=== PATIENT | female | born 1985 | race Caucasian/White ===

== ENCOUNTER 2020-12-21 19:09 | Emergency (ER) | payer BC ==
[2020-12-21 19:20] VITALS: BMI 30.1
[2020-12-21] MEDS ORDERED: ELECTROLYTE-148 SOLN 1,000 ML IV SCH (20:55)
[2020-12-21 21:21] LABS: PH,URINE 6.5 (5.0-8.0); URINE APPEARANCE CLEAR; URINE BILIRUBIN NEGATIVE (NEGATIVE); URINE COLOR YELLOW; URINE GLUCOSE (UA) NEGATIVE (NEGATIVE); URINE KETONE NEGATIVE (NEGATIVE); URINE LEUK ESTERASE NEGATIVE (NEGATIVE); URINE NITRITE NEGATIVE (NEGATIVE); URINE PROTEIN NEGATIVE (NEGATIVE)
[2020-12-21 22:16] VITALS: BP 122/68; PULSE 82; TEMP 98.1
== END 2020-12-21 22:06 | disposition home or self-care (01) ==
LOC: JER 19:09
DX: R10.9 Unspecified abdominal pain (principal); Z3A.29 29 weeks gestation of pregnancy
CPT/HCPCS: 81003; 87086; 99284-25

== ENCOUNTER 2021-03-12 08:55 | Inpatient (IN) | payer BC ==
[~2021-03-12 08:55] MED LIST: CITRIC ACID/SODIUM CITRATE 30 ML UNIT-DOSE CUP PO ONE; ELECTROLYTE-148 SOLN 1,000 ML IV SCH
[2021-03-12] MEDS ORDERED: ELECTROLYTE-148 SOLN 1,000 ML IV SCH (09:25)
[2021-03-12 10:16] VITALS: BMI 33.1
[2021-03-12 10:55] LABS: BASO % 0.3 % (0-2.0); EOS % 0.3 % (0-4.5); HEMATOCRIT 28.9 % (32.4-45.2); HEMOGLOBIN 9.4 GM/dL (10.7-15.3); LYMPH % 9.7 % (8-40); MCH 26.2 pg (25.7-33.7); MCHC 32.7 g/dl (32.0-36.0); MEAN PLT VOLUME 9.8 fl (7.5-11.1); MONO % 6.2 % (3.8-10.2); NEUT % 83.5 % (42.8-82.8); PLATELET COUNT 183 10^3/uL (134-434); RBC 3.61 M/mm3 (3.60-5.2); RDW 15.6 % (11.6-15.6); WHITE BLOOD COUNT 10.2 K/mm3 (4.0-10.0)
[2021-03-12 11:00] LABS: INR 1.01 (0.83-1.09); PROTHROMBIN TIME (PATIENT) 12.2 SEC (9.7-13.0)
[2021-03-12 11:03] LABS: ACTIVATED PTT 22.4 SECONDS (25.2-36.5)
[2021-03-12 11:21] LABS: BLOOD UREA NITROGEN 6.6 mg/dL (7-18); CALCIUM 8.9 mg/dL (8.5-10.1)
[2021-03-12 11:25] LABS: CREATININE 0.8 mg/dL (0.55-1.3)
[2021-03-12 12:33] LABS: HIV INTERPRETATION NEGATIVE (NEGATIVE)
[2021-03-12] MEDS: ELECTROLYTE-148 SOLN 1,000 ML IV SCH (12:45)
[2021-03-12] MEDS ORDERED: CITRIC ACID/SODIUM CITRATE 30 ML UNIT-DOSE CUP PO ONE (13:13)
[2021-03-12] MEDS ORDERED: ELECTROLYTE-148 SOLN 500 ML IV ONE (13:13)
[2021-03-12] MEDS ORDERED: morphine SULFATE/PF 0.5 MG/ML (2cc Syringe - QUVA) ONE (19:02)
[2021-03-12] MEDS ORDERED: ceFAZolin SODIUM 1 GM VIAL ONE (19:07)
[2021-03-12] MEDS ORDERED: morphine SULFATE/PF 0.5 MG/ML (2cc Syringe - QUVA) EP ONE ×3 (19:17→23:30)
[2021-03-12] MEDS ORDERED: KETOROLAC TROMETHAMINE 30 MG/1 ML VIAL ONE (19:35)
[2021-03-12] MEDS ORDERED: OXYTOCIN 20 UNITS in 0.9% NS 20 UNIT/1,000 ML INFUS.BAG IV ONE (19:42)
[2021-03-12] MEDS ORDERED: IBUPROFEN 800 MG/8 ML IJ IVPB PRN ×2 (21:01→22:09)
[2021-03-12] MEDS ORDERED: METHYLERGONOVINE MALEATE 0.2 MG/1 ML AMP IM PRN (21:01)
[2021-03-12] MEDS ORDERED: oxyCODONE HCL 5 MG TABLET PO PRN (21:01)
[2021-03-12] MEDS ORDERED: SENNOSIDES/DOCUSATE COMBO (SENNA PLUS) TABLET (UD) PO PRN (21:01)
[2021-03-12] MEDS ORDERED: IBUPROFEN 600 MG TABLET (FP) PO PRN ×2 (21:01→22:10)
[2021-03-12] MEDS ORDERED: OXYTOCIN 20 UNITS in 0.9% NS 20 UNIT/1,000 ML INFUS.BAG IV SCH (21:15)
[2021-03-12] MEDS ORDERED: ONDANSETRON 4 MG/2 ML VIAL IVPUSH PRN (22:00)
[2021-03-12] MEDS ORDERED: ACETAMINOPHEN 1000 MG/100 ML VIAL (NON FORMULARY) IVPB ONE (22:01)
[2021-03-12] MEDS ORDERED: ACETAMINOPHEN 1000 MG/100 ML VIAL (NON FORMULARY) IVPB PRN (23:35)
[2021-03-13] MEDS: MORPHINE SULFATE 2 MG/ML VIAL IVPUSH PRN ×2 (00:19→08:19)
[2021-03-13 09:09] LABS: BASO % 0.2 % (0-2.0); EOS % 0.2 % (0-4.5); HEMATOCRIT 26.6 % (32.4-45.2); HEMOGLOBIN 8.8 GM/dL (10.7-15.3); LYMPH % 5.6 % (8-40); MCH 26.6 pg (25.7-33.7); MCHC 33.2 g/dl (32.0-36.0); MEAN CELL VOLUME 80.1 fl (80-96); MEAN PLT VOLUME 10.5 fl (7.5-11.1); MONO % 5.2 % (3.8-10.2); NEUT % 88.8 % (42.8-82.8); PLATELET COUNT 144 10^3/uL (134-434); RBC 3.32 M/mm3 (3.60-5.2); RDW 15.6 % (11.6-15.6); WHITE BLOOD COUNT 11.2 K/mm3 (4.0-10.0)
[2021-03-13] MEDS: oxyCODONE HCL 5 MG TABLET PO PRN ×2 (12:10→16:25)
[2021-03-13] MEDS: SIMETHICONE 80 MG TAB.CHEW (FP) PO PRN ×3 (12:10→21:55)
[2021-03-13] MEDS: ELECTROLYTE-148 SOLN 1,000 ML IV SCH (13:31)
[2021-03-13] MEDS ORDERED: ACETAMINOPHEN 325 MG TABLET (FP) PO PRN (18:20)
[2021-03-13] MEDS ORDERED: BISACODYL 10 MG SUPP.RECT RC PRN (21:01)
[2021-03-13] MEDS: ACETAMINOPHEN 325 MG TABLET (FP) PO PRN (21:55)
[2021-03-14] MEDS: ACETAMINOPHEN 325 MG TABLET (FP) PO PRN (06:26)
[2021-03-14] MEDS ORDERED: DIPHTH,PERTUSS(ACELL),TET 0.5 ML DISP.SYRIN IM ONE (10:00)
[2021-03-14 17:06] VITALS: BP 109/71; PULSE 80; TEMP 98.1
== END 2021-03-14 16:15 | disposition home or self-care (01) | DRG 785 ==
LOC: JLDR 08:55 → J3W 21:51
PROVIDERS: ADMIT Obstetrics & Gynecology; ATTEND Obstetrics & Gynecology
PROC: 10D00Z1 Extraction of Products of Conception, Low, Open Approach (ICD-10-PCS; principal; 2021-03-12)
PROC: 0UL70ZZ Occlusion of Bilateral Fallopian Tubes, Open Approach (ICD-10-PCS; 2021-03-12)
DX: O36.63X0 Maternal care for excessive fetal growth, third trimester, not applicable or unspecified (principal); O69.81X0 Labor and delivery complicated by cord around neck, without compression, not applicable or unspecified; Z3A.40 40 weeks gestation of pregnancy; Z37.0 Single live birth; Z30.2 Encounter for sterilization
CPT/HCPCS: 36415; 80048; 85025; 85610; 85730; 86780; 86850; 86900; 86901; 87389; 88302-TC; 88307-TC; 90715; J0131